=== PATIENT | female | born 1995 | race Hispanic/Latino ===

== ENCOUNTER 2023-11-27 07:18 | Emergency (ER) | payer SELFPAY ==
[~2023-11-27] VITALS: Ht 149.9 cm; Wt 54.2 kg
[2023-11-27] MEDS ORDERED: MAALOX 30 ML SUSP *UDC PO ONE (08:05)
[2023-11-27] MEDS ORDERED: PANTOPRAZOLE 40MG VIAL IV ONE (08:05)
[2023-11-27 08:50] LABS: BASO % 0.7 % (0.0-1.0); EOS # 0.1 10^3/uL (0.0-0.5); EOS % 2.4 % (0.0-3.0); HEMOGLOBIN 12.7 g/dl (12.0-15.5); LYMPH # 2.1 10^3/uL (1.5-5.0); LYMPH % 36.3 % (24.0-44.0); MEAN CORPUSCULAR HEMOGLOBIN 31.7 pg (27.0-33.0); MEAN CORPUSCULAR HGB CONC 34.3 g/dl (32.0-36.5); MEAN CORPUSCULAR VOLUME 92.3 fl (80.0-96.0); MONO # 0.5 10^3/uL (0.0-0.8); NEUTROPHILS # 3.1 10^3/uL (1.5-8.5); NEUTROPHILS % 52.1 % (36.0-66.0); PLATELET COUNT, AUTOMATED 245 10^3/uL (150-450); RED BLOOD COUNT 4.01 10^6/uL (4.00-5.40); WHITE BLOOD COUNT 5.9 10^3/uL (4.0-10.0)
[2023-11-27] MEDS ORDERED: ISOVUE-370 76% 100ML VIAL As Ordered ONE (08:54)
[2023-11-27 09:08] LABS: ALBUMIN 4.2 G/DL (3.2-5.2); BILIRUBIN,DIRECT 0.2 MG/DL (<0.4); BILIRUBIN,TOTAL 0.7 MG/DL (0.3-1.2); TOTAL PROTEIN 7.6 G/DL (5.7-8.2)
[2023-11-27] MEDS ORDERED: OMEP40CA4 PO (11:00)
[2023-11-27] MEDS ORDERED: MIRA3350 PO (11:00)
[2023-11-27 11:09] VITALS: BP 105/66; TEMP 98.3; O2SAT 99
== END 2023-11-27 11:25 | disposition home or self-care (01) ==
LOC: M ED 07:18
DX: K59.00 Constipation, unspecified (principal); K21.9 Gastro-esophageal reflux disease without esophagitis
CPT/HCPCS: 71046; 74177; 80047; 80076; 83690; 84702; 85025; 96374; 99284; C9113; Q9967